=== PATIENT | male | born 1935 | race Caucasian/White ===

== ENCOUNTER 2018-04-28 23:48 | Emergency (ER) | payer OTHER ==
[2018-04-29 00:57] LABS: Hematocrit 34.4 % (39.6-49.0); MCH 26.5 pg (27.0-35.0); MCV 83.3 fL (80-100); MPV 6.5 fL (7.6-11.3); RBC Red Blood Cell Count 4.12 M/uL (4.33-5.43)
--- NOTE | 2018-04-29 01:45 | EDPHYS ---
Physician Documentation [facility] Name: Mushtaq Chavez Age: 82 yrs Sex: Male : 1935 Arrival Date: 04/28/2018 Time: 23:49 Bed 25 Private MD: Du Fournier V ED Physician Jose Luis Lawson HPI: 04/29 01:42 This 82 yrs old Male presents to ER via Ambulatory with complaints of tw4 Allergic Reaction. 01:42 The patient presents with diffuse swelling. Onset: The symptoms/episode began/occurred tw4 today. Associated signs and symptoms: The patient has no apparent associated signs or symptoms. Possible causes: The patient has no known obvious cause for the symptoms. At home the patient or guardian has treated the symptoms with nothing. Severity of symptoms: At their worst the symptoms were mild in the emergency department the symptoms are unchanged. The patient has not experienced similar symptoms in the past. Historical: - Allergies: 00:06 No Known Allergies; bb - Home Meds: 00:06 Glimepiride Oral [Active]; Metformin Oral [Active]; clopidogrel oral oral [Active]; bb carvedilol oral oral [Active]; amlodipine oral [Active]; atorvastatin oral oral [Active]; mirtazapine Oral [Active]; paroxetine oral oral [Active]; Actonel Oral [Active]; acetaminophen-codeine Oral [Active]; Anoro Ellipta inhalation inhalation [Active]; aspirin 81 mg Oral chew 1 tab once daily [Active]; Multiple Vitamins oral oral [Active]; calcium [Active]; - PMHx: 00:06 TIA; Diabetes - NIDDM; Hypertension; bb - PSHx: 00:06 Hernia repair; cataract surgery x 2; cardiac catheterization; bb - Immunization history:: Adult Immunizations up to date. - Social history:: Smoking status: Patient uses tobacco products, smokes one pack cigarettes per day. - Ebola Screening: : No symptoms or risks identified at this time. ROS: 01:42 Constitutional: Negative for fever, chills, and weight loss. tw4 01:42 MS/extremity: Positive for swelling. Exam: 01:42 Constitutional: This is a well developed, well nourished patient who is awake, alert, tw4 and in no acute distress. Head/Face: Normocephalic, atraumatic. Chest/axilla: Normal chest wall appearance and motion. Nontender with no deformity. No lesions are appreciated. Cardiovascular: Regular rate and rhythm with a normal S1 and S2. No gallops, murmurs, or rubs. Normal PMI, no JVD. No pulse deficits. Respiratory: Lungs have equal breath sounds bilaterally, clear to auscultation and percussion. No rales, rhonchi or wheezes noted. No increased work of breathing, no retractions or nasal flaring. Abdomen/GI: Soft, non-tender, with normal bowel sounds. No distension or tympany. No guarding or rebound. No evidence of tenderness throughout. MS/ Extremity: Pulses equal, no cyanosis. Neurovascular intact. Full, normal range of motion. Neuro: Awake and alert, GCS 15, oriented to person, place, time, and situation. Cranial nerves II-XII grossly intact. Motor strength 5/5 in all extremities. Sensory grossly intact. Cerebellar exam normal. Normal gait. Vital Signs: 00:06 BP 168 / 83; Pulse 112; Resp 18 S; Temp 97.6(O); Pulse Ox 89% on R/A; Weight 65.32 kg bb (R); Height 5 ft. 11 in. (180.34 cm); Pain 0/10; 01:33 BP 158 / 76; Pulse 100; Resp 18; Pulse Ox 94% on 2 lpm NC; Pain 0/10; ao 00:06 Body Mass Index 20.08 (65.32 kg, 180.34 cm) bb MDM: 00:29 Patient medically screened. tw4 01:42 Data reviewed: vital signs, nurses notes. Test interpretation: by ED physician or tw4 midlevel provider:. Counseling: I had a detailed discussion with the patient and/or guardian regarding: lab results. 04/29 00:48 Order name: CBC w/o diff; Complete Time: 01:42 tw4 04/29 01:42 Interpretation: Normal except: HGB 10.9; WBC 12.4; RBC 4.12; HCT 34.4; MCV 83.3; MCH tw4 26.5; MCHC 31.8; PLT 488; RDW 17.1; MPV 6.5. 04/29 01:09 Order name: Urine Dipstick--Ancillary (enter results) rg2 Administered Medications: No medications were administered Disposition: 04/29/18 01:44 Discharged to Home. Impression: Hematuria, allergic reaction. - Condition is Stable. - Discharge Instructions: Hematuria, Adult, Allergies, [id number]. - Prescriptions for Macrodantin 100 mg Oral Capsule - take 1 capsule by ORAL route every 6 hours for 10 days; 40 capsule. - Medication Reconciliation Form, Thank You Letter, Antibiotic Education, Prescription Opioid Use form. - Follow up: Du Fournier MD; When: As needed; Reason: Recheck today's complaints, Re-evaluation by your physician. - Problem is new. - Symptoms have improved. Signatures: Dispatcher [employer] EDMabel Mckinney RN RN Jose Juan Mayer RN RN Jose Luis Juarez MD MD tw4 Corrections: (The following items were deleted from the chart) 02:00 01:44 04/29/2018 01:44 Discharged to Home. Impression: Hematuria; allergic reaction. ao Condition is Stable. Forms are Medication Reconciliation Form, Thank You Letter, Antibiotic Education, Prescription Opioid Use. Follow up: Du Fournier; When: As needed; Reason: Recheck today's complaints, Re-evaluation by your physician. Problem is new. Symptoms have improved. tw4
--- NOTE | 2018-04-29 01:45 | ER ---
Nurse's Notes [facility] Name: Mushtaq Chavez Age: 82 yrs Sex: Male : 1935 Arrival Date: 04/28/2018 Time: 23:49 Bed 25 Private MD: Du Fournier V Diagnosis: Hematuria;allergic reaction Presentation: 04/29 00:00 Presenting complaint: Patient states: he started taking Cipro yesterday for hematuria bb took one dose yesterday and two today and now his feet are swollen family states pt has hx of TIAs when he gets excited. Transition of care: patient was not received from another setting of care. Onset: The symptoms/episode began/occurred acutely. Anaphylaxis evaluation, no signs or symptoms of anaphylaxis were noted. Onset of symptoms was April 29, 2018. Risk Assessment: Do you want to hurt yourself or someone else? Patient reports no desire to harm self or others. Initial Sepsis Screen: Does the patient meet any 2 criteria? No. Patient's initial sepsis screen is negative. Does the patient have a suspected source of infection? No. Patient's initial sepsis screen is negative. Care prior to arrival: None. 00:00 Method Of Arrival: Ambulatory bb 00:00 Acuity: ZOYA 3 bb Historical: - Allergies: 00:06 No Known Allergies; bb - Home Meds: 00:06 Glimepiride Oral [Active]; Metformin Oral [Active]; clopidogrel oral oral [Active]; bb carvedilol oral oral [Active]; amlodipine oral [Active]; atorvastatin oral oral [Active]; mirtazapine Oral [Active]; paroxetine oral oral [Active]; Actonel Oral [Active]; acetaminophen-codeine Oral [Active]; Anoro Ellipta inhalation inhalation [Active]; aspirin 81 mg Oral chew 1 tab once daily [Active]; Multiple Vitamins oral oral [Active]; calcium [Active]; - PMHx: 00:06 TIA; Diabetes - NIDDM; Hypertension; bb - PSHx: 00:06 Hernia repair; cataract surgery x 2; cardiac catheterization; bb - Immunization history:: Adult Immunizations up to date. - Social history:: Smoking status: Patient uses tobacco products, smokes one pack cigarettes per day. - Ebola Screening: : No symptoms or risks identified at this time. Screenin:33 Abuse screen: Denies threats or abuse. Denies injuries from another. Nutritional ao screening: No deficits noted. Tuberculosis screening: No symptoms or risk factors identified. Fall Risk None identified. Assessment: 00:15 General: Appears in no apparent distress. comfortable, Behavior is calm, cooperative, ao appropriate for age. Pain: Denies pain. Neuro: Level of Consciousness is awake, alert, obeys commands, Oriented to person, place, time, situation, Appropriate for age Moves all extremities. Speech is normal, Facial symmetry appears normal. Cardiovascular: Capillary refill < 3 seconds Patient's skin is warm and dry. Respiratory: Airway is patent Respiratory effort is even, unlabored, Respiratory pattern is regular, symmetrical, Breath sounds are clear bilaterally. GI: Abdomen is non-distended. : Reports burning with urination, pain with urination, UTI that has been treated with clindamycin. EENT: No signs and/or symptoms were reported regarding the EENT system. Derm: Skin is dry, Skin is pink, warm \T\ dry. normal, Skin temperature is warm Reports pain that is 2 out of 10 on a pain scale. since on the feet's when walks. Musculoskeletal: No signs and/or symptoms reported regarding the musculoskeletal system. 01:33 Reassessment: Patient appears in no apparent distress at this time. Patient and/or ao family updated on plan of care and expected duration. Pain level reassessed. Patient is alert, oriented x 3, equal unlabored respirations, skin warm/dry/pink. Vital Signs: 00:06 BP 168 / 83; Pulse 112; Resp 18 S; Temp 97.6(O); Pulse Ox 89% on R/A; Weight 65.32 kg bb (R); Height 5 ft. 11 in. (180.34 cm); Pain 0/10; 01:33 BP 158 / 76; Pulse 100; Resp 18; Pulse Ox 94% on 2 lpm NC; Pain 0/10; ao 00:06 Body Mass Index 20.08 (65.32 kg, 180.34 cm) bb ED Course: 04/28 23:49 Patient arrived in ED. am2 23:49 Du Fournier MD is Private Physician. am2 23:50 Jose Juan Dawn RN is Primary Nurse. ao 04/29 00:02 Triage completed. bb 00:06 Arm band placed on Patient placed in an exam room, on a stretcher, on oxygen, on pulse bb oximetry. Family accompanied patient. 00:07 Oxygen administration via nasal cannula \T\ 2L/min Response to oxygen therapy: symptoms bb improved. 00:20 Inserted saline lock: 22 gauge in right forearm, using aseptic technique. Blood ao collected. 00:29 Jose Luis Lawson MD is Attending Physician. tw4 00:33 Patient has correct armband on for positive identification. Pulse ox on. NIBP on. ao 01:43 Du Fournier MD is Referral Physician. tw4 01:58 No provider procedures requiring assistance completed. IV discontinued, intact, ao bleeding controlled, No redness/swelling at site. Pressure dressing applied. Administered Medications: No medications were administered Outcome: 01:44 Discharge ordered by . tw4 02:00 Discharged to home ambulatory. ao 02:00 Condition: stable 02:00 Discharge instructions given to patient, Instructed on discharge instructions, follow up and referral plans. Demonstrated understanding of instructions, follow-up care, medications, Prescriptions given X 1. 02:00 Patient left the ED. ao Signatures: Mabel Mcneil, RN RN Jose Juan Mayer, RN RN Pamela Mcqueen am2 Jose Luis Lawson MD MD tw4
[2018-04-29 02:09] VITALS: TEMP 97.6
[2018-04-29 02:11] VITALS: BP 158/76; O2SAT 94
[2018-04-29 05:20] LABS: Urine Blood 3+ (NEG); Urine Glucose NEGATIVE (NEG); Urine Protein 3+ (NEG); Urine pH 6.5 (5.0-7.0)
== END 2018-04-29 02:00 | disposition home or self-care (01) ==
LOC: ER 23:48
DX: T78.40XA Allergy, unspecified, initial encounter (principal); X58.XXXA Exposure to other specified factors, initial encounter; R31.9 Hematuria, unspecified; E11.9 Type 2 diabetes mellitus without complications; Z79.84 Long term (current) use of oral hypoglycemic drugs; I10 Essential (primary) hypertension
CPT/HCPCS: 36415; 81003; 85027; 99284

== ENCOUNTER 2018-05-04 13:16 | Inpatient (IN) | payer OTHER ==
[2018-05-04] MEDS: CEFTRIAXONE/SWI 1gm 1 GM/10 ML SYR IV SCH ×2 (14:30→21:45)
[2018-05-04 14:50] LABS: Absolute Lymphocytes (CBC) 1.5 K/uL (0.7-4.9); Absolute Monocytes 0.8 K/uL (0.1-1.3); Absolute Neutrophil 9.2 K/uL (1.8-8.0); Basophils % 0.9 % (0-1.3); Lymphocytes % 12.7 % (15.3-44.8); MCH 27.3 pg (27.0-35.0); MCV 83.7 fL (80-100); MPV 6.6 fL (7.6-11.3); Monocytes % 6.9 % (3.3-12.3); RBC Red Blood Cell Count 3.94 M/uL (4.33-5.43)
[2018-05-04 14:59] LABS: Protime INR 0.99
[2018-05-04 15:10] LABS: Potassium 4.2 mmol/L (3.5-5.1)
--- NOTE | 2018-05-04 16:20 | EKG ---
Test Date: 2018-05-04 Test Time: 14:22:21 Cooling Tower Technician: ADIA MEASUREMENT RESULTS: Intervals: Rate: 108 [place]: 208 QRSD: 80 QT: 326 QTc: 436 [place]: P: 78 [place]: 208 QRS: 46 T: 76 INTERPRETIVE STATEMENTS: Sinus tachycardia Anterior infarct, age undetermined Abnormal ECG Compared to ECG 12/31/2014 23:08:13 Sinus rhythm no longer present First degree AV block no longer present Myocardial infarct finding still present Electronically Signed On 05-04-18 16:19:53 CDT by Eddie Nassar
[2018-05-04 16:26] LABS: Urine Appearance CLOUDY; Urine Bilirubin NEGATIVE (NEG); Urine Blood 3+ (NEG); Urine Color RED; Urine Glucose 1+ (NEG); Urine Protein 3+ (NEG); Urine Specific Gravity 1.015 (1.005-1.030); Urine Urobilinogen 0.2 mg/dL (0.2-1.0)
[2018-05-04 16:30] LABS: Urine Microscopic Reflex ORDER UMIC
[2018-05-04 16:34] LABS: Urine Bacteria <20 /HPF (NONE SEEN); Urine Culture Reflex Order REFLEXED; Urine RBC LOADED /HPF (NONE SEEN)
--- NOTE | 2018-05-04 17:20 | RAD REPORT ---
EXAM DESCRIPTION: CT - Abdomen Pelvis W Contrast - 05/04/2018 4:56 pm CLINICAL HISTORY: Hematuria COMPARISON: None. TECHNIQUE: Computed axial tomography of the abdomen and pelvis was obtained. 100 cc Isovue-300 is ad ministered intravenously. Oral contrast was given. All CT scans are performed using dose optimization technique as appropriate and may include automated exposure control or mA/KV adjustment according to patient size. FINDINGS: The liver, spleen, hand pain appear unremarkable. Bilateral renal cysts are present. The largest with in the right kidney measuring 5.4 centimeters. 30 millimeter left adrenal mass is present. 12 millimeter right adrenal mass is seen. A 6 centimeter lobulated mass is present within the posterior bladder. Air bubbles are present. The p rostate gland is moderately enlarged. There is no evidence of diverticulitis. The bones of the pelvis and spine have a mottled appearance. 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 Fournier 5:10 p.m. May 04, 2018
[2018-05-04] MEDS ORDERED: RISEDRONATE SODIUM PO SCH (18:30)
--- NOTE | 2018-05-04 18:35 | P.HP ---
Certification for Inpatient Patient admitted to: Observation With expected LOS: <2 Midnights Practitioner: I am a practitioner with admitting privileges, knowledge of patient current condition, hospital course, and medical plan of care. Services: Services provided to patient in accordance with Admission requirements found in Title 42 Section 412.3 of the Code of Federal Regulations Patient History Date of Service: 05/04/18 Reason for admission: HEMATURIA, UTI History of Present Illness: MR. HENRIQUEZ HAS HEMATURIA FOR TWO WEEKS. HAS BEEN REFERRED TO DR. MARIE WHO SAW HIM TODAY AND GOT ADMITTED FOR PROCEDURE IN AM PROCEDURE TODAY COULD NOT BE FINISHED WITH TOO MANY CLOTS. HE HAD UTI IN BETWEEN AND GOT CIPRO FROM DR BHAGAT AND THEN HAD REACTION WITH EEMA OF FEET AND TINGLING. HE WENT TO ER , GOT MACRODANTIN AND NOW IS HERE. Allergies No Known Allergies Allergy (Unverified 01/25/15 06:02) Home Medications: Amlodipine Besylate/Benazepril [Amlodipine-Benazepril 10-20 mg] 1 cap PO DAILY 05/04/18 Aspirin 1 tab PO DAILY 05/04/18 Atorvastatin Calcium [Lipitor*] 1 cap PO DAILY 05/04/18 Calcium Carbonate [Calcium] 1 tab PO DAILY 05/04/18 Carvedilol [Coreg*] 1 cap PO BID 05/04/18 Clopidogrel Bisulfate [Plavix*] 1 cap PO DAILY 05/04/18 Glimepiride 5 mg PO BID 05/04/18 Metformin HCl [Glucophage] 500 mg PO BID 05/04/18 Mirtazapine [Remeron*] 1 cap PO DAILY 05/04/18 Multivitamin [Multivitamins] 1 tab PO DAILY 05/04/18 Nitrofurantoin Monohyd/M-Cryst [Macrobid 100 mg Capsule] 1 tab PO Q6H 05/04/18 PARoxetine HCl [Paxil*] 1 tab PO DAILY 05/04/18 Risedronate Sodium [Actonel] 1 tab PO SEECOM 05/04/18 Umeclidinium Brm/Vilanterol Tr [Anoro Ellipta 62.5-25 Mcg INH] 1 puff PO DAILY 05/04/18 - Past Medical/Surgical History Has patient received pneumonia vaccine in the past: Yes Diabetic: Yes -: niddm -: cva x 2 -: high cholesterol -: hypertension -: copd -: malignant hyperthermia -: paget's disease -: abdominal hernia -: bilateral cataract surgery - Family History Father History Unknown: Yes -: Stroke Brother -: Heart disease Notes: mi miother -: Heart disease Notes: mi - Social History Smoking Status: Current every day smoker Alcohol use: No CD- Drugs: No Caffeine use: Yes Place of Residence: Home Review of Systems 10-point ROS is otherwise unremarkable General: Weakness Respiratory: Shortness of Breath (CHR COPD) Physical Examination - Vital Signs Temperature: 98.3 F Blood Pressure: 161/77 Pulse: 97 Respirations: 18 Pulse Ox (%): 90 - Physical Exam General: Alert, Cachectic, Acute distress, Mild distress HEENT: Atraumatic, PERRLA, Mucous membr. moist/pink, EOMI, Sclerae nonicteric Neck: Supple, 2+ carotid pulse no bruit, No LAD, Without JVD or thyroid abnormality Respiratory: Diminished Cardiovascular: Regular rate/rhythm, Normal S1 S2 Gastrointestinal: Normal bowel sounds, No tenderness Musculoskeletal: No tenderness Integumentary: No rashes Neurological: Normal gait, Normal speech, Normal strength at 5/5 x4 extr, Normal tone, Normal affect Lymphatics: No axilla or inguinal lymphadenopathy - Studies Laboratory Data (last 24 hrs) 05/04/18 14:37: Sodium 135 L, Potassium 4.2, BUN 21 H, Creatinine 1.10, Glucose 232 H 05/04/18 14:37: PT 11.7, INR 0.99, APTT 32.4 05/04/18 14:37: WBC 12.1 H, Hgb 10.8 L, Hct 33.0 L, Plt Count 579 H Assessment and Plan - Problems (Diagnosis) (1) Hematuria Current Visit: Yes Status: Acute Plan: SMOKER CT SCAN SHOWS MASS DR MARIE TO DO SCOPE IN AM. BX IF NEED PLAVIX ON HOLD (2) COPD (chronic obstructive pulmonary disease) Current Visit: Yes Status: Chronic Plan: CHR NO CHANGES Qualifiers: COPD type: unspecified COPD Qualified Code(s): J44.9 - Chronic obstructive pulmonary disease, unspecified (3) HTN (hypertension) Current Visit: Yes Status: Chronic Qualifiers: Hypertension type: essential hypertension Qualified Code(s): I10 - Essential (primary) hypertension (4) Diabetes Current Visit: Yes Status: Chronic Plan: FU ON MEDS A1C STABLE AT OFFICE (5) History of CVA (cerebrovascular accident) Current Visit: Yes Status: Resolved Plan: HOLDING PLAVIX AND ASPIRIN OF ACUTE CONDITION RAISES RISK OF CVA. PATIENT AWARE - Advance Directives Does patient have a Living Will: Yes Does patient have a Durable POA for Healthcare: Yes
[2018-05-04] MEDS ORDERED: GLIMEPIRIDE 5 MG PO SCH (21:00)
[2018-05-04] MEDS ORDERED: METFORMIN HCL 500 MG TAB PO SCH (21:00)
[2018-05-04] MEDS ORDERED: CARVEDILOL 6.25 MG TAB PO SCH (21:00)
[2018-05-04] MEDS ORDERED: ATORVASTATIN 10 MG TAB PO SCH (21:00)
[2018-05-04] MEDS ORDERED: MIRTAZAPINE 15 MG TAB PO SCH (21:00)
[2018-05-04] MEDS: CARVEDILOL 6.25 MG TAB PO SCH (21:44)
[2018-05-04] MEDS: ATORVASTATIN 10 MG TAB PO SCH (21:45)
[2018-05-04] MEDS: D5.45NS W/KCL 20MEQ 1,000 ML IV SCH (23:58)
[2018-05-05] MEDS ORDERED: GLIMEPIRIDE 2 MG TABLET PO SCH (08:00)
[2018-05-05] MEDS: CARVEDILOL 6.25 MG TAB PO SCH ×2 (08:15→20:30)
[2018-05-05] MEDS: AMLODIPINE 10 MG TAB PO SCH (08:15)
[2018-05-05] MEDS: CEFTRIAXONE/SWI 1gm 1 GM/10 ML SYR IV SCH ×2 (08:15→20:31)
[2018-05-05] MEDS: HOME MED 1 EA UNK IH SCH (08:15)
[2018-05-05] MEDS: BENAZEPRIL 20 MG TAB PO SCH (08:15)
[2018-05-05] MEDS: PARoxetine HCl 10 MG TAB PO SCH ×2 (08:16→23:39)
[2018-05-05] MEDS: CALCIUM CARBONATE 500 MG TAB PO SCH (08:16)
[2018-05-05] MEDS: MIRTAZAPINE 15 MG TAB PO SCH ×2 (08:16→23:39)
[2018-05-05] MEDS: HOME MED 1 EA UNK (Umeclidinium Brm/Vilanterol Tr [Anoro Ellipta 62.5-25 Mcg Inh] 1 PUFF) PO SCH (08:16)
[2018-05-05] MEDS ORDERED: MULTIVITAMIN TAB PO SCH (09:00)
[2018-05-05] MEDS ORDERED: BENAZEPRIL 20 MG TAB PO SCH (09:00)
[2018-05-05] MEDS ORDERED: AMLODIPINE BESYLATE PO SCH (09:00)
[2018-05-05] MEDS ORDERED: BENAZEPRIL PO SCH (09:00)
[2018-05-05] MEDS ORDERED: PARoxetine HCl 10 MG TAB PO SCH (09:00)
[2018-05-05] MEDS ORDERED: [UNRECOGNIZED DRUG - OTHER] PO SCH (09:00)
--- NOTE | 2018-05-05 12:57 | P.PN ---
Subjective Date of Service: 05/05/18 Chief Complaint: HEMATURIA, UTI Subjective: No new changes (HAS BM AT THE SAME TIME HE URINATES.) Review of Systems 10-point ROS is otherwise unremarkable Physical Examination - Vital Signs Temperature: 97.5 F Blood Pressure: 158/73 Pulse: 97 Respirations: 18 Pulse Ox (%): 89 - Physical Exam General: Alert, Cachectic, Mild distress HEENT: Atraumatic, PERRLA, EOMI Neck: Supple, JVD not distended Respiratory: Clear to auscultation bilaterally, Normal air movement Cardiovascular: Regular rate/rhythm, Normal S1 S2 Gastrointestinal: Normal bowel sounds, No tenderness Musculoskeletal: No tenderness Integumentary: No rashes Neurological: Normal speech, Normal tone, Normal affect Lymphatics: No axilla or inguinal lymphadenopathy - Studies Laboratory Data (last 24 hrs) 05/04/18 14:37: Sodium 135 L, Potassium 4.2, BUN 21 H, Creatinine 1.10, Glucose 232 H 05/04/18 14:37: PT 11.7, INR 0.99, APTT 32.4 05/04/18 14:37: WBC 12.1 H, Hgb 10.8 L, Hct 33.0 L, Plt Count 579 H Medications List Reviewed: Yes Assessment And Plan - Current Problems (Diagnosis) (1) Hematuria Current Visit: Yes Status: Acute Plan: SMOKER CT SCAN SHOWS MASS FRANK TO DO SCOPE IN AM. BX IF NEED PLAVIX ON HOLD CYSTOSCOPY AND BX TODAY. (2) COPD (chronic obstructive pulmonary disease) Current Visit: Yes Status: Chronic Plan: CHR NO CHANGES Qualifiers: COPD type: unspecified COPD Qualified Code(s): J44.9 - Chronic obstructive pulmonary disease, unspecified (3) HTN (hypertension) Current Visit: Yes Status: Chronic Qualifiers: Hypertension type: essential hypertension Qualified Code(s): I10 - Essential (primary) hypertension (4) Diabetes Current Visit: Yes Status: Chronic Plan: FU ON MEDS A1C STABLE AT OFFICE (5) History of CVA (cerebrovascular accident) Current Visit: Yes Status: Resolved Plan: HOLDING PLAVIX AND ASPIRIN OF ACUTE CONDITION RAISES RISK OF CVA. PATIENT AWARE
[2018-05-05] MEDS: D5.45NS W/KCL 20MEQ 1,000 ML IV SCH ×2 (12:58→23:26)
[2018-05-05] MEDS ORDERED: PROPOFOL 200 MG/20 ML VIAL IV ONE (13:43)
[2018-05-05] MEDS ORDERED: LIDOCAINE 2% MPF 5 ML VIAL ONE (13:43)
[2018-05-05] MEDS ORDERED: FENTANYL CITR 100 MCG/2 ML ONE (13:43)
[2018-05-05] MEDS ORDERED: NA CHLORIDE 0.9% 1,000 ML IV PRN (13:50)
[2018-05-05] MEDS ORDERED: MAGNESIUM HYDROXIDE 8% 30 ML PO PRN (14:07)
[2018-05-05] MEDS ORDERED: NA CHLORIDE 0.9% 1,000 ML ONE (14:08)
[2018-05-05] MEDS ORDERED: GENTAMICIN IV ONE (14:20)
[2018-05-05] MEDS ORDERED: GENTAMICIN SULF 80 MG/2ML INJ ONE (14:20)
[2018-05-05] MEDS ORDERED: CODEINE 30MG/APAP 300MG TAB PO PRN (16:34)
[2018-05-05] MEDS: CODEINE 30MG/APAP 300MG TAB PO PRN ×2 (16:43→21:51)
[2018-05-05] MEDS: PHENAZOPYRIDINE 100MG TAB PO SCH ×2 (16:56→23:27)
[2018-05-05] MEDS: GLIMEPIRIDE 2 MG TABLET PO SCH (17:15)
[2018-05-05] MEDS: ATORVASTATIN 10 MG TAB PO SCH (20:30)
[2018-05-05] MEDS ORDERED: TAMSULOSIN 0.4 MG SR CAP PO SCH (21:00)
[2018-05-06] MEDS: D5.45NS W/KCL 20MEQ 1,000 ML IV SCH ×2 (02:04→15:12)
[2018-05-06] MEDS ORDERED: NACL 0.9% IRR SOLN 2,000 ML IRR SCH (03:00)
[2018-05-06] MEDS: CODEINE 30MG/APAP 300MG TAB PO PRN (03:25)
[2018-05-06] MEDS: PHENAZOPYRIDINE 100MG TAB PO SCH ×2 (05:40→12:25)
[2018-05-06 05:52] VITALS: BMI 20.1
[2018-05-06] MEDS: PARoxetine HCl 10 MG TAB PO SCH (06:59)
[2018-05-06] MEDS: MIRTAZAPINE 15 MG TAB PO SCH (07:00)
[2018-05-06] MEDS: CARVEDILOL 6.25 MG TAB PO SCH (08:27)
[2018-05-06] MEDS: GLIMEPIRIDE 2 MG TABLET PO SCH ×2 (08:27→16:05)
[2018-05-06] MEDS: CEFTRIAXONE/SWI 1gm 1 GM/10 ML SYR IV SCH (08:28)
[2018-05-06] MEDS: CALCIUM CARBONATE 500 MG TAB PO SCH (08:28)
[2018-05-06] MEDS: HOME MED 1 EA UNK IH SCH ×2 (08:30→09:00)
[2018-05-06] MEDS: HOME MED 1 EA UNK (Umeclidinium Brm/Vilanterol Tr [Anoro Ellipta 62.5-25 Mcg Inh] 1 PUFF) PO SCH ×2 (08:31→09:00)
[2018-05-06 09:21] VITALS: O2SAT 94
[2018-05-06] MEDS: AMLODIPINE 10 MG TAB PO SCH (10:11)
[2018-05-06] MEDS: BENAZEPRIL 20 MG TAB PO SCH (10:11)
[2018-05-06] MEDS ORDERED: MITOMYCIN IRR ONE (12:00)
[2018-05-06] MEDS ORDERED: mitoMYcin 40 MG in WATER FOR INJ,STERILE 50 ML IV SCH (12:00)
[2018-05-06 17:16] VITALS: BP 124/82; TEMP 98.8
--- NOTE | 2018-05-06 20:30 | PN ---
Subjective: The patient is doing well. Urine is clear. Objective: A 40 mg mitomycin C in 40 cc sterile water was placed via the catheter into the bladder. The bladder was obviously drained prior and CBI was off. After this the catheter was removed leaving the mitomycin in the bladder. The patient will spend 15 minutes on each side to lucy the entire bl adder with mitomycin in the perioperative period, status post bladder tumor resection. The patient w ill then sit on the toilet and void. Try to avoid the mitomycin touching his skin that will cause a rash. He can then go home as permitted by his primary care. Follow up with me in 1 week for patholo gy results. CHRISTIANA/SCOUT Voice ID: [id number] Report ID: [id number]
[2018-05-06] MEDS ORDERED: MIRTAZAPINE 15 MG TAB PO SCH (21:00)
[2018-05-06] MEDS ORDERED: PARoxetine HCl 10 MG TAB PO SCH (21:00)
--- NOTE | 2018-05-06 22:37 | P.DS ---
Admission Date: 05/04/18 Discharge Date: 05/06/18 Disposition: ROUTINE DISCHARGE Reason for Admission: HEMATURIA, UTI - Problems (1) Hematuria Onset Date: 05/05/18 Status: Acute (2) COPD (chronic obstructive pulmonary disease) Onset Date: 05/05/18 Status: Chronic Qualifiers: COPD type: unspecified COPD Qualified Code(s): J44.9 - Chronic obstructive pulmonary disease, unspecified (3) HTN (hypertension) Onset Date: 05/05/18 Status: Chronic Qualifiers: Hypertension type: essential hypertension Qualified Code(s): I10 - Essential (primary) hypertension (4) Diabetes Onset Date: 05/05/18 Status: Chronic Brief History of Present Illness: MR. HENRIQUEZ HAS HEMATURIA FOR TWO WEEKS. HAS BEEN REFERRED TO DR. SHELBY WHO SAW HIM TODAY AND GOT ADMITTED FOR PROCEDURE IN AM PROCEDURE TODAY COULD NOT BE FINISHED WITH TOO MANY CLOTS. HE HAD UTI IN BETWEEN AND GOT CIPRO FROM DR BHAGAT AND THEN HAD REACTION WITH EEMA OF FEET AND TINGLING. HE WENT TO ER , GOT MACRODANTIN AND NOW IS HERE. MR. HENRIQUEZ HAS HAD CYSTOSCOPY AND TUMOR REMOVED. HE IS STABLE [facility]. DR. SHELBY WILL FU. Vital Signs/Physical Exam: Temp Pulse Resp BP Pulse Ox 98.8 F 104 H 20 124/82 91 05/06/18 16:00 05/06/18 16:00 05/06/18 16:00 05/06/18 16:00 05/06/18 16:00 Laboratory Data at Discharge: WBC 12.1 K/uL (4.3-10.9) H 05/04/18 14:37 Hgb 10.8 g/dL (13.6-17.9) L 05/04/18 14:37 Hct 33.0 % (39.6-49.0) L 05/04/18 14:37 Plt Count 579 K/uL (152-406) H 05/04/18 14:37 PT 11.7 SECONDS (9.5-12.5) 05/04/18 14:37 INR 0.99 05/04/18 14:37 APTT 32.4 SECONDS (24.3-36.9) 05/04/18 14:37 Sodium 135 mmol/L (136-145) L 05/04/18 14:37 Potassium 4.2 mmol/L (3.5-5.1) 05/04/18 14:37 BUN 21 mg/dL (7-18) H 05/04/18 14:37 Creatinine 1.10 mg/dL (0.55-1.3) 05/04/18 14:37 Glucose 232 mg/dL (74-106) H 05/04/18 14:37 Home Medications: Amlodipine Besylate/Benazepril [Amlodipine-Benazepril 10-20 mg] 1 cap PO DAILY 05/04/18 Aspirin 1 tab PO DAILY 05/04/18 Atorvastatin Calcium [Lipitor*] 1 cap PO DAILY 05/04/18 Calcium Carbonate [Calcium] 1 tab PO DAILY 05/04/18 Carvedilol [Coreg*] 1 cap PO BID 05/04/18 Clopidogrel Bisulfate [Plavix*] 1 cap PO DAILY 05/04/18 Glimepiride 5 mg PO BID 05/04/18 Metformin HCl [Glucophage*] 500 mg PO BID 05/04/18 Mirtazapine [Remeron*] 1 cap PO BEDTIME 05/04/18 Multivitamin [Multivitamins] 1 tab PO DAILY 05/04/18 Nitrofurantoin Monohyd/M-Cryst [Macrobid 100 mg Capsule] 1 tab PO Q6H 05/04/18 PARoxetine HCl [Paxil*] 1 tab PO BEDTIME 05/04/18 Risedronate Sodium [Actonel] 1 tab PO SEECOM 05/04/18 Umeclidinium Brm/Vilanterol Tr [Anoro Ellipta 62.5-25 Mcg INH] 1 puff PO DAILY 05/04/18 Followup: Chandler Shelby MD [ACTIVE - CAN ADMIT] - Du Fournier MD [Primary Care Provider] -
== END 2018-05-06 19:00 | disposition home or self-care (01) | DRG 670 ==
LOC: 2ND 13:43 → 3RD-ICU 05-05 15:35 → 2ND 05-06 11:30
PROVIDERS: ADMIT Internal Medicine; ATTEND Internal Medicine
PROC: 0TBB8ZZ Excision of Bladder, Via Natural or Artificial Opening Endoscopic (ICD-10-PCS; principal; 2018-05-05 13:30)
PROC: 3E0K705 Introduction of Other Antineoplastic into Genitourinary Tract, Via Natural or Artificial Opening (ICD-10-PCS; 2018-05-06)
DX: C67.4 Malignant neoplasm of posterior wall of bladder (principal); R31.0 Gross hematuria; J44.9 Chronic obstructive pulmonary disease, unspecified; F17.200 Nicotine dependence, unspecified, uncomplicated; I10 Essential (primary) hypertension; Z86.73 Personal history of transient ischemic attack (TIA), and cerebral infarction without residual deficits; H40.9 Unspecified glaucoma; E11.9 Type 2 diabetes mellitus without complications; Z79.84 Long term (current) use of oral hypoglycemic drugs; Z79.02 Long term (current) use of antithrombotics/antiplatelets; Z79.82 Long term (current) use of aspirin; E78.00 Pure hypercholesterolemia, unspecified
CPT/HCPCS: 36415; 74177; 80048; 81003; 81015; 82962; 85025; 85610; 85730; 87086; 87088; 88305; 88307; 93005; J0696; J1580; J3010; J7030; J9280

== ENCOUNTER 2018-07-14 10:14 | Inpatient (IN) | payer OTHER ==
[2018-07-14] MEDS ORDERED: ALBUTEROL 2.5 MG/3 ML NEB SOL IH PRN (10:49)
[2018-07-14] MEDS ORDERED: POLYETHYL GLY 3350 17 GM/DOSE PO PRN (11:00)
[2018-07-14] MEDS ORDERED: NACHLORIDE 0.45% 1,000 ML IV SCH ×2 (11:00→17:00)
[2018-07-14] MEDS ORDERED: LOPERAMIDE HCL 2 MG CAPSULE PO PRN (11:00)
[2018-07-14] MEDS ORDERED: ONDANSETRON 4 MG/2 ML VIAL IV PRN (11:00)
[2018-07-14] MEDS ORDERED: DIPHENHYDRAMINE 25 MG TAB/CAP PO PRN (11:00)
[2018-07-14] MEDS ORDERED: ACETAMINOPHEN 325 MG TABLET PO PRN (11:00)
[2018-07-14] MEDS ORDERED: ONDANSETRON 4 MG (ODT) TAB PO PRN (11:00)
[2018-07-14 11:54] LABS: Protime INR 1.06
[2018-07-14 12:09] LABS: Absolute Lymphocytes (CBC) 1.3 K/uL (0.7-4.9); Absolute Monocytes 0.7 K/uL (0.1-1.3); Absolute Neutrophil 9.8 K/uL (1.8-8.0); Basophils % 1.1 % (0-1.3); Eosinophils % 2.5 % (0-4.4); Hematocrit 34.5 % (39.6-49.0); Lymphocytes % 10.8 % (15.3-44.8); MCH 25.1 pg (27.0-35.0); MPV 6.6 fL (7.6-11.3); Monocytes % 5.8 % (3.3-12.3); RBC Red Blood Cell Count 4.42 M/uL (4.33-5.43)
[2018-07-14 12:25] LABS: Albumin 2.8 g/dL (3.4-5.0); Bilirubin Direct 0.1 mg/dL (0-0.2); Bilirubin Total 0.3 mg/dL (0.2-1.0); Magnesium 1.7 mg/dL (1.8-2.4); Phosphorus 3.1 mg/dL (2.5-4.9); Potassium 4.5 mmol/L (3.5-5.1); Thyroid Stimulating Hormone 1.68 uIU/mL (0.360-3.740)
[2018-07-14] MEDS: IPRATROPIUM BROM 0.5MG/2.5ML IH SCH ×2 (13:38→19:58)
[2018-07-14] MEDS: LEVALBUTEROL 1.25 MG/3 ML NEB IH SCH ×2 (13:38→19:58)
--- NOTE | 2018-07-14 13:41 | RAD REPORT ---
EXAM DESCRIPTION: CT - Chest Angio - 07/14/2018 1:01 pm CLINICAL HISTORY: Dyspnea, COPD, shortness of breath COMPARISON: Portable chest December 2014 TECHNIQUE: Dynamically enhanced 3 mm thick images of the chest were obtained during administration o f approximately 150mL Isovue 370 IV contrast. Coronal and oblique MIP reconstruction images were gene rated and reviewed. Exam utilizes a protocol to evaluate the pulmonary arterial tree. All CT scans are performed using dose optimization technique as appropriate and may include automated exposure control or mA/KV adjustment according to patient size. FINDINGS: No pulmonary emboli are identified. The aorta as imaged shows no acute or suspicious finding. No pericardial thickening or effusion. Patient has severe COPD changes in each upper lobe. In the posterosuperior right upper lobe there is an 8 centimeter masslike consolidation. There is central cavitation. A less extensive airspace consol idation pattern is seen in the posterior inferior left upper lobe. Airspace consolidation changes are seen in the right middle lobe and the posterior inferior aspect of each lower lobe. Minimal bilateral pleural effusions are present. There is no pneumothorax. Primary pleural based mass is not identifiable. No endobronchial lesions identifiable. There is borderline bronchiectasis in th e lower lobes. Numerous mediastinal and hilar lymph nodes are present. The subcarinal lymphadenopathy measures 4.6 x 2.6 cm. No chest wall masses or abnormal axillary lymphadenopathy. IMPRESSION: No pulmonary emboli identified. Extensive irregular airspace consolidation throughout all lobes with the largest area in the posteros uperior right upper lobe where there is additional central cavitation. Patient has an extensive mediastinal and hilar lymphadenopathy pattern along with small bilateral ple ural effusions. Lung parenchymal findings can indicate a cavitary or necrotizing diffuse pneumonia pattern. Pulmonary TB would be a consideration as well. Diffuse nature of the lung parenchymal findings not typical for malignancy. Patient has extensive underlying COPD.
[2018-07-14 15:41] LABS: Urine Appearance CLEAR; Urine Bilirubin NEGATIVE (NEG); Urine Blood NEGATIVE (NEG); Urine Color YELLOW; Urine Glucose NEGATIVE (NEG); Urine Protein 1+ (NEG); Urine Specific Gravity >=1.030 (1.005-1.030); Urine Urobilinogen 0.2 mg/dL (0.2-1.0); Urine pH 5.5 (5.0-7.0)
[2018-07-14] MEDS: Meropenem 1,000 MG in NA CHLORIDE 0.9% 100 ML IV SCH (15:42)
[2018-07-14 15:45] LABS: Urine Microscopic Reflex ORDER UMIC
[2018-07-14 15:58] LABS: Urine Bacteria <20 /HPF (NONE SEEN); Urine Culture Reflex Order NOT NEEDED; Urine Mucus 1+ /HPF (NONE SEEN); Urine RBC <5 /HPF (NONE SEEN)
[2018-07-14] MEDS ORDERED: MAGNESIUM SULFATE 1 gm IVPB 1 GM/100 ML BAG IV ONE (17:00)
[2018-07-14] MEDS ORDERED: Meropenem 1000 MG/VIAL IV SCH ×2 (17:00)
[2018-07-14] MEDS ORDERED: METHYLPREDNISOLONE 40 MG INJ IV SCH (18:00)
[2018-07-14] MEDS ORDERED: D50W 25 GM/50 ML SYRINGE IV PRN (18:08)
[2018-07-14] MEDS ORDERED: GLUCAGON 1 MG/VIAL IM PRN (18:08)
[2018-07-14] MEDS: INSULIN -REGULAR HUMAN 50 UNIT/0.5 ML ML SQ SCH ×2 (18:39→21:00)
[2018-07-14] MEDS ORDERED: VANCOMYCIN 1.5 GM in NA CHLORIDE 0.9% 250 ML IVPB ONE (21:00)
[2018-07-14] MEDS ORDERED: VANCOMYCIN 1 GM/VIAL ONE (21:31)
[2018-07-14] MEDS ORDERED: VANCOMYCIN 500 MG/VIAL ONE (21:32)
[2018-07-14] MEDS ORDERED: NA CHLORIDE 0.9% 250 ML ONE (21:34)
[2018-07-14] MEDS: PARoxetine HCl 10 MG TAB PO SCH (21:39)
[2018-07-14] MEDS: MIRTAZAPINE 15 MG TAB PO SCH (21:39)
[2018-07-14] MEDS: CARVEDILOL 6.25 MG TAB PO SCH (21:39)
[2018-07-15] MEDS: Meropenem 1,000 MG in NA CHLORIDE 0.9% 100 ML IV SCH ×3 (01:05→16:53)
[2018-07-15] MEDS: LEVALBUTEROL 1.25 MG/3 ML NEB IH SCH ×4 (01:25→20:38)
[2018-07-15] MEDS: IPRATROPIUM BROM 0.5MG/2.5ML IH SCH ×4 (01:25→20:38)
[2018-07-15] MEDS ORDERED: FUROSEMIDE 20 MG/ 2ML VIAL IV ONE (02:31)
[2018-07-15 04:38] LABS: Absolute Lymphocytes (CBC) 1.1 K/uL (0.7-4.9); Absolute Monocytes 1.2 K/uL (0.1-1.3); Absolute Neutrophil 12.4 K/uL (1.8-8.0); Basophils % 0.9 % (0-1.3); Eosinophils % 4.2 % (0-4.4); Hematocrit 35.5 % (39.6-49.0); Lymphocytes % 7.2 % (15.3-44.8); MCH 24.8 pg (27.0-35.0); MCV 77.8 fL (80-100); MPV 6.7 fL (7.6-11.3); Monocytes % 7.9 % (3.3-12.3); RBC Red Blood Cell Count 4.56 M/uL (4.33-5.43)
[2018-07-15 04:52] LABS: Magnesium 1.8 mg/dL (1.8-2.4); Potassium 4.1 mmol/L (3.5-5.1)
[2018-07-15] MEDS ORDERED: MAGNESIUM SULFATE 1 gm IVPB 1 GM/100 ML BAG IV ONE (06:15)
[2018-07-15] MEDS: INSULIN -REGULAR HUMAN 50 UNIT/0.5 ML ML SQ SCH ×4 (07:30→21:00)
[2018-07-15] MEDS: ASPIRIN 81 MG CHEWABLE TABLET PO SCH (09:00)
[2018-07-15] MEDS: CODEINE 30MG/APAP 300MG TAB PO SCH (09:50)
[2018-07-15] MEDS: ATORVASTATIN 10 MG TAB PO SCH (09:50)
[2018-07-15] MEDS: CLOPIDOGREL 75 MG TABLET PO SCH (09:50)
[2018-07-15] MEDS: CARVEDILOL 6.25 MG TAB PO SCH ×2 (09:50→16:54)
--- NOTE | 2018-07-15 17:01 | P.CNS ---
Date of Consult: 07/15/18 Chief Complaint: Abnormal chest x-ray possible pneumonia History of Present Illness: Patient is 82 years of age was been experiencing progressive decline for the past 2 months since his operation on his bladder admitted with shortness of breath complaining of a cough denies any fever chills lost some weight he was found to have extensive bilateral infiltrates history of COPD quit smoking about 3 months ago history of COPD Allergies ciprofloxacin [From Cipro] Adverse Reaction (Verified 05/05/18 20:46) Itching/Hives/Rash Home Medications: Amlodipine Besylate/Benazepril [Amlodipine-Benazepril 10-20 mg] 1 cap PO DAILY 05/04/18 Aspirin 1 tab PO DAILY 05/04/18 Atorvastatin Calcium [Lipitor*] 1 cap PO DAILY 05/04/18 Carvedilol [Coreg*] 1 cap PO BID 05/04/18 Clopidogrel Bisulfate [Plavix*] 1 cap PO DAILY 05/04/18 Glimepiride 4 mg PO BID 05/04/18 Metformin HCl [Glucophage*] 1,000 mg PO BID 05/04/18 Mirtazapine [Remeron*] 1 cap PO BEDTIME 05/04/18 Multivitamin [Multivitamins] 1 tab PO DAILY 05/04/18 PARoxetine HCl [Paxil*] 1 tab PO BEDTIME 05/04/18 Risedronate Sodium [Actonel] 1 tab PO SEECOM 05/04/18 Umeclidinium Brm/Vilanterol Tr [Anoro Ellipta 62.5-25 Mcg INH] 1 puff PO DAILY 05/04/18 Calcium Carbonate/Vitamin D3 [Calcium 500 + Vit D Caplet] 1 tab PO DAILY Codeine/APAP [Tylenol #3*] 1 tab PO DAILY 07/14/18 - Past Medical/Surgical History Diabetic: Yes -: 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 -: high cholesterol -: hypertension -: copd -: malignant hyperthermia -: paget's disease -: A-fibb -: bilat abdominal hernia -: bilateral cataract surgery - Family History Father Medical History: Stroke Brother Medical History: Heart disease Notes: mi miother Medical History: Heart disease Notes: mi - Social History Smoking Status: Current every day smoker Alcohol use: No CD- Drugs: No Caffeine use: Yes Place of Residence: Home Review of Systems General: Weakness Respiratory: Cough, Shortness of Breath Physical Examination Temp Pulse Resp BP Pulse Ox 97.9 F 91 H 20 134/63 97 07/15/18 12:00 07/15/18 16:54 07/15/18 12:00 07/15/18 16:54 07/15/18 12:00 General: Alert, Oriented x3 HEENT: Atraumatic Neck: Supple Respiratory: Crackles/rales (Crackles bilaterally) Cardiovascular: No edema, Regular rate/rhythm Gastrointestinal: Normal bowel sounds, Soft and benign Laboratory Data (last 24 hrs) 07/15/18 04:00: Sodium 130 L, Potassium 4.1, BUN 21 H, Creatinine 0.90, Glucose 200 H, Magnesium 1.8 07/15/18 04:00: WBC 15.5 H D, Hgb 11.3 L, Hct 35.5 L, Plt Count 543 H - Problems (1) Pneumonia Current Visit: Yes Status: Acute Plan: Patient is 82 years of age admitted with progressive shortness of breath he has extensive bilateral infiltrates patient has a mildly elevated white count there is no fever or chills microcytic anemia currently is on vancomycin and meropenem sputum cultures ordered will consider bronchoscopy with the sputum cultures are nondiagnostic doubt tuberculosis patient symptoms are out of proportion to his x-ray findings 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
[2018-07-15] MEDS: MIRTAZAPINE 15 MG TAB PO SCH (21:00)
[2018-07-15] MEDS: PARoxetine HCl 10 MG TAB PO SCH (21:00)
[2018-07-15] MEDS: VANCOMYCIN 1.25 GM in NA CHLORIDE 0.9% 250 ML IVPB SCH (22:09)
[2018-07-16] MEDS: Meropenem 1,000 MG in NA CHLORIDE 0.9% 100 ML IV SCH ×3 (01:55→17:26)
--- NOTE | 2018-07-16 02:04 | PN ---
Subjective: The patient is short of breath, weak, tired, exhausted, slightly better than yesterday. Objective: The patient is an 82-year-old gentleman with past medical history of severe COPD, heavy s moking history, recent history of bladder cancer status post cystoscopy and getting bladder instillat ion chemotherapy. He is short of breath at rest. Pulse ox is staying about 92% on non-rebreather. He needed a BiPAP at night p.r.n., he was not able to tolerate it. He has been given vancomycin and meropenem since yesterday since we diagnosed him to have an extensive pneumonia with cavitary lesion. Laboratory Data: On laboratory examination, the patient has a white count of 15,000, which is after 1 dose of steroid he had yesterday, before that it was 12,000, hemoglobin 11, hematocrit 35, platelet s of 543,000. Sodium 131, potassium 4.1, BUN 21, creatinine 0.9, bicarb is 24. Lactic acid has come down to 1.6 from more than 2. Assessment And Plan: Possible bacterial infection of the lungs given pneumonia and cavita ry lesion, a small abscess. Continue vancomycin and meropenem. Sputum culture pending. Acid-fast b acilli pending. There is a low likelihood of tuberculosis or cancer here. He does have all the risk factors for cancer also. Continue antibiotics for now. We will evaluate him on a daily basis, disc uss with the patient's on daily basis. Dr. Zuñiga consulted. KATHLEEN/MODL Voice ID: [id number] Report ID: [id number]
[2018-07-16] MEDS: IPRATROPIUM BROM 0.5MG/2.5ML IH SCH ×4 (02:09→20:04)
[2018-07-16] MEDS: LEVALBUTEROL 1.25 MG/3 ML NEB IH SCH ×2 (02:09→07:45)
[2018-07-16 04:52] LABS: Absolute Lymphocytes (CBC) 0.9 K/uL (0.7-4.9); Absolute Monocytes 1.2 K/uL (0.1-1.3); Absolute Neutrophil 9.6 K/uL (1.8-8.0); Basophils % 0.7 % (0-1.3); Eosinophils % 6.2 % (0-4.4); Hematocrit 30.8 % (39.6-49.0); Lymphocytes % 7.2 % (15.3-44.8); MCH 25.2 pg (27.0-35.0); MCV 77.8 fL (80-100); MPV 6.5 fL (7.6-11.3); Monocytes % 9.6 % (3.3-12.3); RBC Red Blood Cell Count 3.96 M/uL (4.33-5.43)
[2018-07-16 05:04] LABS: BUN Blood Urea Nitrogen 21 mg/dL (7-18); Bicarbonate 25 mmol/L (21-32); Glucose Level 157 mg/dL (74-106); Magnesium 1.8 mg/dL (1.8-2.4); Potassium 4.2 mmol/L (3.5-5.1); Sodium Level 131 mmol/L (136-145)
[2018-07-16] MEDS ORDERED: MAGNESIUM SULFATE 1 gm IVPB 1 GM/100 ML BAG IV ONE (06:48)
[2018-07-16] MEDS: INSULIN -REGULAR HUMAN 50 UNIT/0.5 ML ML SQ SCH ×4 (07:30→21:55)
[2018-07-16] MEDS: CARVEDILOL 6.25 MG TAB PO SCH ×3 (08:00→17:22)
[2018-07-16] MEDS: ARFORMOTEROL TARTRATE 15 MCG/2 ML VIAL.NEB NEB SCH ×2 (08:49→20:04)
--- NOTE | 2018-07-16 08:53 | P.PN ---
Subjective Date of Service: 07/16/18 Chief Complaint: Abnormal chest x-ray possible pneumonia Subjective: Improving (Patient's condition is stable he is still does desat off O2 using BiPAP intermittently) Review of Systems General: Weakness Respiratory: Cough, Shortness of Breath Physical Examination - Vital Signs Temperature: 97.5 F Blood Pressure: 122/71 Pulse: 104 Respirations: 18 Pulse Ox (%): 92 - Physical Exam General: Alert, Oriented x3 Neck: Supple Respiratory: Crackles/rales Cardiovascular: No edema, Normal S1 S2 - Studies Laboratory Data (last 24 hrs) 07/16/18 04:25: Sodium 131 L, Potassium 4.2, BUN 21 H, Creatinine 0.80, Glucose 157 H, Magnesium 1.8 07/16/18 04:25: WBC 12.6 H D, Hgb 10.0 L, Hct 30.8 L, Plt Count 439 H Assessment & Plan - Problems (Diagnosis) (1) Pneumonia Current Visit: Yes Status: Acute Plan: Patient is 82 years of age admitted with significant bilateral pneumonia he is not septic other signs are all stable white count is declining repeat chest x- ray ordered he continues to improve will consider trial of steroids doubt that this is tuberculosis his clinical appearance is not compatible with his severity of the chest x-ray patient is mildly anemic he has severe COPD based on the CT scan of 1 I use Atrovent q. 6 Xopenex p.r.n. Qualifiers: Pneumonia type: due to unspecified organism
[2018-07-16] MEDS: ATORVASTATIN 10 MG TAB PO SCH ×2 (09:00→21:57)
[2018-07-16] MEDS: CLOPIDOGREL 75 MG TABLET PO SCH ×2 (09:00)
[2018-07-16] MEDS: CODEINE 30MG/APAP 300MG TAB PO SCH (09:00)
[2018-07-16] MEDS: ASPIRIN 81 MG CHEWABLE TABLET PO SCH ×2 (09:00→13:34)
[2018-07-16] MEDS: predniSONE 20 MG TAB PO SCH ×2 (09:19→21:56)
[2018-07-16] MEDS ORDERED: IPRATROPIUM BROM 0.5MG/2.5ML NEB SCH (14:00)
[2018-07-16] MEDS ORDERED: METFORMIN HCL 500 MG TAB PO SCH (17:00)
[2018-07-16] MEDS: GLIMEPIRIDE 2 MG TABLET PO SCH (17:26)
[2018-07-16 18:14] LABS: Urine Appearance CLEAR; Urine Bilirubin NEGATIVE (NEG); Urine Blood NEGATIVE (NEG); Urine Color YELLOW; Urine Glucose 2+ (NEG); Urine Protein 1+ (NEG); Urine Specific Gravity 1.025 (1.005-1.030); Urine Urobilinogen 0.2 mg/dL (0.2-1.0); Urine pH 5.5 (5.0-7.0)
[2018-07-16 18:27] LABS: Urine Microscopic Reflex ORDER UMIC
[2018-07-16 19:20] LABS: Urine Bacteria <20 /HPF (NONE SEEN); Urine Culture Reflex Order NOT NEEDED; Urine Mucus 1+ /HPF (NONE SEEN)
[2018-07-16] MEDS: LEVALBUTEROL 1.25 MG/3 ML NEB IH PRN (20:04)
[2018-07-16] MEDS: VANCOMYCIN 1.25 GM in NA CHLORIDE 0.9% 250 ML IVPB SCH (21:55)
[2018-07-16] MEDS: MIRTAZAPINE 15 MG TAB PO SCH (21:56)
[2018-07-16] MEDS: PARoxetine HCl 10 MG TAB PO SCH (21:57)
--- NOTE | 2018-07-16 22:33 | PN ---
Date of Progress Note: 07/16/2018 Subjective: The patient is feeling lot better. Denies any chest pain, nausea, or vomiting. Physical Examination: A frail, cachectic gentleman, heavy smoker in the past, COPD patient, comes in with low oxygen, hypox ia, weakness, and was found to have extensive pneumonia which has clinically improved. The very firs t sputum reports came back. There is a cavitary part of the pneumonia also which could be just a tea r, it looks less likely to be tuberculosis in nature. Dr. Zuñiga is on the case. Continue antibio tics, currently on broad-spectrum. Once there is more improvement, we will make it further narrow in the spectrum. Continue current medications. There is no sign of COPD exacerbation at this point. He does have COPD, but current admission is for pneumonia and his prognosis remains overall guarded. He is cachectic, frail. Chances of malignancy are there, but we will have to see how the pneumonia responds to the antibiotics. RVD/MODL Voice ID: [id number] Report ID: [id number]
[2018-07-17] MEDS: Meropenem 1,000 MG in NA CHLORIDE 0.9% 100 ML IV SCH ×3 (00:39→18:45)
[2018-07-17] MEDS: IPRATROPIUM BROM 0.5MG/2.5ML IH SCH ×4 (01:45→19:47)
[2018-07-17 05:41] LABS: Absolute Lymphocytes (CBC) 0.8 K/uL (0.7-4.9); Absolute Monocytes 0.4 K/uL (0.1-1.3); Absolute Neutrophil 11.2 K/uL (1.8-8.0); Basophils % 0.1 % (0-1.3); Eosinophils % 0.2 % (0-4.4); Hematocrit 30.2 % (39.6-49.0); Lymphocytes % 6.7 % (15.3-44.8); MCH 25.2 pg (27.0-35.0); MPV 6.8 fL (7.6-11.3); Monocytes % 3.5 % (3.3-12.3); RBC Red Blood Cell Count 3.88 M/uL (4.33-5.43)
[2018-07-17 06:04] LABS: Magnesium 2.1 mg/dL (1.8-2.4); Potassium 5.5 mmol/L (3.5-5.1)
[2018-07-17] MEDS: INSULIN -REGULAR HUMAN 50 UNIT/0.5 ML ML SQ SCH ×4 (07:30→21:46)
--- NOTE | 2018-07-17 08:08 | P.PN ---
Subjective Date of Service: 07/18/18 Chief Complaint: Pneumonai Subjective: Improving (Doign better. On BIPAP) Review of Systems General: Weakness Respiratory: Shortness of Breath Physical Examination - Vital Signs Temperature: 97.1 F Blood Pressure: 138/71 Pulse: 97 Respirations: 18 Pulse Ox (%): 97 - Physical Exam General: Oriented x3 Respiratory: Clear to auscultation bilaterally Cardiovascular: No edema, Normal S1 S2 - Studies Laboratory Data (last 24 hrs) 07/17/18 04:58: Sodium 138, Potassium 5.5 H, BUN 32 H, Creatinine 0.90, Glucose 233 H, Magnesium 2.1 07/17/18 04:58: WBC 12.5 H, Hgb 9.8 L, Hct 30.2 L, Plt Count 491 H Assessment & Plan - Problems (Diagnosis) (1) Pneumonia Onset Date: 07/16/18 Current Visit: Yes Status: Acute Plan: Bilateral pneumonia. . DDX BOOP. Trial fo steroids. Lovenox for DVT prophylaxis. Trial of BIPAP. LAbs rev. BS elevated. K elevated. cultures neg. CXRy bialt inflam changes. Continue with isolation until sputum cultures are back Qualifiers: Pneumonia type: due to unspecified organism
--- NOTE | 2018-07-17 08:11 | RAD REPORT ---
EXAM DESCRIPTION: [place] Single View07/17/2018 6:30 am CLINICAL HISTORY: Chest pain COMPARISON: 07/14/2018 FINDINGS: There probably has been no significant change in the extensive bilateral pneumonia. The heart is normal size IMPRESSION: No significant change since the prior exam
[2018-07-17 08:26] LABS: Anisocytosis 1+; Blood Morphology Comment NOTED (NOT SEEN); Platelet Estimate INCR
[2018-07-17] MEDS ORDERED: BENAZEPRIL PO SCH (09:00)
[2018-07-17] MEDS ORDERED: AMLODIPINE BESYLATE PO SCH (09:00)
[2018-07-17] MEDS ORDERED: GLIMEPIRIDE 2 MG TABLET PO SCH (09:00)
[2018-07-17] MEDS: CODEINE 30MG/APAP 300MG TAB PO SCH (09:00)
[2018-07-17] MEDS ORDERED: [UNRECOGNIZED DRUG - OTHER] PO SCH (09:00)
[2018-07-17] MEDS ORDERED: BENAZEPRIL 20 MG TAB PO SCH (09:00)
[2018-07-17] MEDS: ENOXAPARIN 40 MG/0.4 ML SQ SCH (09:13)
[2018-07-17] MEDS: CARVEDILOL 6.25 MG TAB PO SCH ×2 (09:13→18:45)
[2018-07-17] MEDS: METFORMIN HCL 500 MG TAB PO SCH ×3 (09:14→22:00)
[2018-07-17] MEDS: CLOPIDOGREL 75 MG TABLET PO SCH (09:14)
[2018-07-17] MEDS: predniSONE 20 MG TAB PO SCH ×2 (09:14→21:48)
[2018-07-17] MEDS: GLIMEPIRIDE 2 MG TABLET PO SCH ×2 (09:14→18:44)
[2018-07-17] MEDS: AMLODIPINE 10 MG TAB PO SCH (09:14)
[2018-07-17] MEDS: ARFORMOTEROL TARTRATE 15 MCG/2 ML VIAL.NEB NEB SCH ×2 (09:50→19:47)
[2018-07-17] MEDS: ASPIRIN 81 MG CHEWABLE TABLET PO SCH (12:50)
[2018-07-17 12:54] LABS: UR MICROALBUMIN 6.2 mg/dL (< 1.9)
[2018-07-17] MEDS ORDERED: D50W 25 GM/50 ML SYRINGE IV PRN (16:33)
[2018-07-17] MEDS ORDERED: GLUCAGON 1 MG/VIAL IM PRN (16:33)
[2018-07-17] MEDS ORDERED: NACHLORIDE 0.45% 1,000 ML IV SCH (18:00)
[2018-07-17] MEDS ORDERED: VANCOMYCIN 1.5 GM in NA CHLORIDE 0.9% 500 ML IVPB SCH (21:00)
[2018-07-17] MEDS: INSULIN GLARGINE 100 UNITS/ML SQ SCH (21:47)
[2018-07-17] MEDS: MIRTAZAPINE 15 MG TAB PO SCH (21:48)
[2018-07-17] MEDS: PARoxetine HCl 10 MG TAB PO SCH (21:48)
[2018-07-17] MEDS: ATORVASTATIN 10 MG TAB PO SCH (21:49)
[2018-07-17] MEDS: ETHAMBUTOL HCL 400 MG TAB PO SCH (22:00)
--- NOTE | 2018-07-17 22:32 | PN ---
Subjective: The patient is feeling lot better. Denies any chest pain, nausea, vomiting. Breathing is improved. Physical Examination: General: The patient is comfortable, still hypoxic on nasal cannula, 100% non-rebreather for oxygena tion 92% on Ventimask. Vital Signs: Temperature 97.4, pulse 103, blood pressure 171/66, respirations 20. HEENT: No JVD. No carotid bruits. Chest: Clear to auscultation bilaterally. No rales, no wheezing. Abdomen: No guarding, no rebound, no rigidity. Neurological: Intact. Laboratory Data: White count 12,500, hemoglobin 9.8, hematocrit 30, platelets of 491. Potassium 5.5 , glucose 233. Microalbumin 114. 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 According to Dr. 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 This will raise his sugar, so I am adding Lantus insulin at t his point subcu daily. Follow up on sugar every day. 2.Hyperkalemia. I will stop benazepril and start gentle IV fluids. This will improve the potassium slightly by tomorrow. May not need Kayexalate. 3.Chronic obstructive pulmonary disease, currently severe chronic obstructive pulmonary disease, not in exacerbation, but his current respiratory condition worsening as the cause of the bronchiolitis obliterans with organizing pneumonia. Prognosis is guarded. Discussed with the patient's . RVD/MODL Voice ID: [id number] Report ID: [id number]
[2018-07-18] MEDS: Meropenem 1,000 MG in NA CHLORIDE 0.9% 100 ML IV SCH ×2 (01:21→09:27)
[2018-07-18] MEDS: IPRATROPIUM BROM 0.5MG/2.5ML IH SCH ×4 (01:33→20:37)
[2018-07-18] MEDS: ARFORMOTEROL TARTRATE 15 MCG/2 ML VIAL.NEB NEB SCH ×2 (08:00→20:36)
[2018-07-18 08:37] LABS: BUN Blood Urea Nitrogen 33 mg/dL (7-18); Bicarbonate 27 mmol/L (21-32); Glucose Level 214 mg/dL (74-106); Potassium 4.9 mmol/L (3.5-5.1); Sodium Level 134 mmol/L (136-145)
[2018-07-18 08:47] LABS: Absolute Lymphocytes (CBC) 1.2 K/uL (0.7-4.9); Absolute Monocytes 0.6 K/uL (0.1-1.3); Absolute Neutrophil 12.6 K/uL (1.8-8.0); Basophils % 0.1 % (0-1.3); Eosinophils % 0.1 % (0-4.4); Hematocrit 33.4 % (39.6-49.0); Lymphocytes % 8.1 % (15.3-44.8); MCH 24.9 pg (27.0-35.0); MCV 77.7 fL (80-100); MPV 6.7 fL (7.6-11.3)
[2018-07-18] MEDS: GLIMEPIRIDE 2 MG TABLET PO SCH ×2 (09:28→17:00)
[2018-07-18] MEDS: ENOXAPARIN 40 MG/0.4 ML SQ SCH (09:28)
[2018-07-18] MEDS: METFORMIN HCL 500 MG TAB PO SCH ×2 (09:29→21:49)
[2018-07-18] MEDS: CODEINE 30MG/APAP 300MG TAB PO SCH (09:30)
[2018-07-18] MEDS: AMLODIPINE 10 MG TAB PO SCH (09:31)
[2018-07-18] MEDS: INSULIN -REGULAR HUMAN 50 UNIT/0.5 ML ML SQ SCH ×4 (09:32→21:00)
[2018-07-18] MEDS: CLOPIDOGREL 75 MG TABLET PO SCH (09:32)
[2018-07-18] MEDS: CARVEDILOL 6.25 MG TAB PO SCH ×2 (09:32→17:35)
--- NOTE | 2018-07-18 10:33 | P.PN ---
Subjective Date of Service: 07/18/18 Chief Complaint: AFB positive Subjective: Improving (Patient is improving although still hypoxic eating and drinking according to the he has not lost any weight recently) Review of Systems Respiratory: Cough, Shortness of Breath Physical Examination - Vital Signs Temperature: 97.1 F Blood Pressure: 138/71 Pulse: 97 Respirations: 18 Pulse Ox (%): 97 - Physical Exam General: Alert, Oriented x3 Neck: Supple Respiratory: Clear to auscultation bilaterally Cardiovascular: No edema, Normal S1 S2 - Studies Laboratory Data (last 24 hrs) 07/18/18 08:13: Sodium 134 L, Potassium 4.9, BUN 33 H, Creatinine 0.80, Glucose 214 H 07/18/18 08:13: WBC 14.4 H D, Hgb 10.7 L, Hct 33.4 L, Plt Count 607 H D Assessment & Plan - Problems (Diagnosis) (1) Acid fast bacillus Current Visit: Yes Status: Acute Plan: Patient's sputum is full +acid-fast bacilli I have started him on antituberculous therapy with 4 drugs will notify the health department clinically is improving all the still requiring significant oxygen patient has severe COPD Dc meropenem and steroids continue with isolation Plan to discharge in: Greater than 2 days
[2018-07-18] MEDS: PYRAZINAMIDE 500 MG TAB PO SCH ×2 (12:38→21:48)
[2018-07-18] MEDS: ISONIAZID 300 MG TAB PO SCH (12:39)
[2018-07-18] MEDS: ASPIRIN 81 MG CHEWABLE TABLET PO SCH (12:41)
[2018-07-18] MEDS: INSULIN GLARGINE 100 UNITS/ML SQ SCH (21:00)
[2018-07-18] MEDS: ATORVASTATIN 10 MG TAB PO SCH (21:50)
[2018-07-18] MEDS: ETHAMBUTOL HCL 400 MG TAB PO SCH (21:50)
[2018-07-18] MEDS: MIRTAZAPINE 15 MG TAB PO SCH (22:02)
--- NOTE | 2018-07-18 23:28 | PN ---
Subjective: Mr. Dominguez is feeling lot better. Denies any chest pain, nausea, vomiting, diarrhea, coughing. He is minimally short of breath at rest. Objective: Vital Signs: Blood pressure 140/79. Pulse ox is 92% percent on 40% FiO2, and pulse rate is 94. General: Weak, cachectic, old gentleman. Chest: Decreased breath sounds bilaterally. Heart: Regular. Abdomen: No guarding, no rebound, no rigidity. Laboratory Data: White count 42958; hemoglobin 10, hematocrit 33, platelets of 627,000. Potassium 4 .9, BUN 36, creatinine 0.8. Culture positive acid-fast bacilli just called in last night to Dr. Rosario morrow. 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 Again, identification will be available in a week or 2 from now. Un til then, Dr. Zuñiga wants to start TB therapy as a precaution. He is on isolation since the beginn ing of the hospital. Explained to family in detail. 2.The patient might have superimposed pneumonia also, which is what brought him to hospital, and he is on meropenem for pneumonia. Clinically he is improved significantly. He continued to be hypoxic, which is why he is still in the hospital. It may take Friday or Friday until his oxygenation improv es to get him home with oral TB therapy under care of [facility]. If he has M ycobacterium avium-intracellulare, the Mycobacterium tuberculosis infection therapy will be discontin ued at this point, but we will not know until further culture identification. Discussed with the patient's and also Dr. Zuñiga. KATHLEEN/MODL Voice ID: [id number] Report ID: [id number]
[2018-07-18] MEDS ORDERED: NA CHLORIDE 0.9% 1,000 ML IV SCH (23:45)
[2018-07-19 00:35] LABS: Absolute Lymphocytes (CBC) 1.8 K/uL (0.7-4.9); Absolute Monocytes 1.1 K/uL (0.1-1.3); Absolute Neutrophil 9.2 K/uL (1.8-8.0); Basophils % 0.5 % (0-1.3); Eosinophils % 5.3 % (0-4.4); Hematocrit 33.1 % (39.6-49.0); MCH 24.5 pg (27.0-35.0); MCV 77.2 fL (80-100); MPV 6.6 fL (7.6-11.3); Monocytes % 8.4 % (3.3-12.3); RBC Red Blood Cell Count 4.28 M/uL (4.33-5.43)
[2018-07-19 00:58] LABS: Albumin 2.4 g/dL (3.4-5.0); Bilirubin Total 0.5 mg/dL (0.2-1.0); Potassium 4.8 mmol/L (3.5-5.1); Protein, Total 6.3 g/dL (6.4-8.2)
[2018-07-19 01:04] LABS: Blood Morphology Comment NOT SEEN (NOT SEEN); Platelet Estimate INCR
[2018-07-19] MEDS: IPRATROPIUM BROM 0.5MG/2.5ML IH SCH ×4 (01:44→19:41)
[2018-07-19] MEDS: INSULIN -REGULAR HUMAN 50 UNIT/0.5 ML ML SQ SCH ×4 (07:30→21:24)
[2018-07-19] MEDS: GLIMEPIRIDE 2 MG TABLET PO SCH ×2 (08:00→18:09)
--- NOTE | 2018-07-19 08:08 | RAD REPORT ---
EXAM DESCRIPTION: RAD - Chest Single View - 07/18/2018 6:34 am CLINICAL HISTORY: Pneumonia The final report was delayed due to PACs and/or Fluency technical problems that existed at the time of the study or during expected/usual dictation time period. It is unknown if a verbal report was pro vided prior to this dictation. COMPARISON: July 17 chest film, July 14 CT chest TECHNIQUE: AP portable chest image was obtained 0600 hours . FINDINGS: Dense parenchymal opacification is present in the lateral mid left lung field. Extensive p arenchymal opacification in the right upper lung field. Cavitary component is seen in the right upper lobe finding. Less extensive right lower lung field opacification is present. Overall lung findings are not substantially different from prior day study. Heart and vasculature are normal. No enlarging pleural effusion. No pneumothorax. No gross bony abno rmality seen. No acute aortic findings suspected. IMPRESSION: Extensive parenchymal opacification scattered throughout the lung [place]. Pattern is not substantially different from prior day.
[2018-07-19] MEDS: ARFORMOTEROL TARTRATE 15 MCG/2 ML VIAL.NEB NEB SCH ×2 (08:17→19:41)
[2018-07-19] MEDS: METFORMIN HCL 500 MG TAB PO SCH ×2 (09:00→21:25)
[2018-07-19] MEDS: ISONIAZID 300 MG TAB PO SCH (09:00)
[2018-07-19] MEDS: AMLODIPINE 10 MG TAB PO SCH (09:29)
[2018-07-19] MEDS: PYRAZINAMIDE 500 MG TAB PO SCH ×2 (09:29→21:25)
[2018-07-19] MEDS: CODEINE 30MG/APAP 300MG TAB PO SCH (09:30)
[2018-07-19] MEDS: CLOPIDOGREL 75 MG TABLET PO SCH (09:30)
[2018-07-19] MEDS: CARVEDILOL 6.25 MG TAB PO SCH ×2 (09:30→18:09)
[2018-07-19] MEDS: ENOXAPARIN 40 MG/0.4 ML SQ SCH (09:31)
[2018-07-19] MEDS: ASPIRIN 81 MG CHEWABLE TABLET PO SCH (11:33)
--- NOTE | 2018-07-19 11:43 | RAD REPORT ---
EXAM DESCRIPTION: RAD - Chest Single View - 07/19/2018 6:09 am CLINICAL HISTORY: pneumonia Chest pain. COMPARISON: Chest Single View dated 07/18/2018; Chest Single View dated 07/17/2018; CHEST SINGLE VIEW dated 12/31/2014; CHEST SINGLE VIEW dated 10/25/2011; Chest Angio dated 07/14/2018 FINDINGS: Portable technique limits examination quality. No significant change is seen in the extensive areas of airspace opacification bilaterally with under lying emphysematous changes present. The heart is mildly enlarged in size. No displaced fractures.Aor tic atherosclerosis. IMPRESSION: Stable chest since 07/18/2018.
[2018-07-19] MEDS: INSULIN GLARGINE 100 UNITS/ML SQ SCH (21:23)
[2018-07-19] MEDS: ATORVASTATIN 10 MG TAB PO SCH (21:24)
[2018-07-19] MEDS: MIRTAZAPINE 15 MG TAB PO SCH (21:25)
[2018-07-19] MEDS: ETHAMBUTOL HCL 400 MG TAB PO SCH (21:25)
--- NOTE | 2018-07-19 23:08 | PN ---
Subjective: The patient is feeling lot a better. Objective: VITAL SIGNS: He is on high dose of oxygen 8 to 9 L nasal cannula through Ventimask, oxygen saturating 90% down to 88%. Blood pressure 125/79, and pulse 92. HEENT: No JVD. No carotid bruit. CHEST: Decreased breath sounds bilaterally. HEART: Regular. ABDOMEN: No guarding, no rebound, no rigidity. Investigations: Hemoglobin 10; hematocrit 30; WBC 12,800 after being off steroids now; and platelets were 540,000. Lactic acid down from 2.9 to 1.4. Assessment And Plan: 1. Possible mycobacterium avium intracellulare infection clinically. He never had symptoms about chronic respiratory tract infection, except for being weak. He was not able to walk and was hypoxic. He never had low-grade temperature at night. Never had coughing with hemoptysis. Recently weight loss happened since the surgery for bladder cancer, which was the cystoscopic surgery. So the symptoms are in favor of Mycobacterium avium-intracellulare infection and not Mycobacterium tuberculosis. I explained to the family about this, but again we would not know more identification available. He is not able to go home yet as hypoxia remains a major problem, we cannot maintain Ventimask oxygenation at home, which is why he is still here. He may qualify for LTAC, but currently, he needs to be in isolation until we know more about further identification of tuberculosis versus Mycobacterium avium- intracellulare infection. 2. His diabetes is better controlled with insulin at this point. He may not need insulin at home. 3. Chronic obstructive pulmonary disease. It is a chronic disease for him. He has severe chronic obstructive pulmonary disease, but no signs of exacerbation. On chest examination, he has stable chest since beginning showing extensive areas of airspace opacification bilaterally and underlying emphysematous changes. Prognosis is guarded. Discussed with the patient today. is not at bedside to today. RVD/MODL Voice ID: [id number] Report ID: [id number] THOM
[2018-07-20] MEDS: LEVALBUTEROL 1.25 MG/3 ML NEB IH PRN (03:33)
[2018-07-20] MEDS: IPRATROPIUM BROM 0.5MG/2.5ML IH SCH ×4 (03:34→20:28)
[2018-07-20] MEDS: INSULIN -REGULAR HUMAN 50 UNIT/0.5 ML ML SQ SCH ×4 (07:30→21:00)
--- NOTE | 2018-07-20 07:35 | RAD REPORT ---
EXAM DESCRIPTION: RAD - Chest Single View - 07/20/2018 6:44 am CLINICAL HISTORY: Pneumonia COMPARISON: July 19 TECHNIQUE: AP portable chest image was obtained 0626 hours . FINDINGS: Extensive bilateral lung opacification is still present. Cavitary component in the right u pper lobe also seen as stable. No progressive chest finding seen. Heart size is normal and stable. No pneumothorax or enlarging pleural effusion. IMPRESSION: Extensive bilateral lung parenchymal opacification stable from prior day.
[2018-07-20] MEDS: GLIMEPIRIDE 2 MG TABLET PO SCH ×2 (08:00→17:00)
[2018-07-20] MEDS: METFORMIN HCL 500 MG TAB PO SCH (08:48)
[2018-07-20] MEDS: HOME MED 1 EA UNK (Umeclidinium Brm/Vilanterol Tr [Anoro Ellipta 62.5-25 Mcg Inh] 1 PUFF) PO SCH (09:00)
[2018-07-20] MEDS: ARFORMOTEROL TARTRATE 15 MCG/2 ML VIAL.NEB NEB SCH ×2 (09:03→20:29)
[2018-07-20] MEDS: ENOXAPARIN 40 MG/0.4 ML SQ SCH (09:43)
[2018-07-20] MEDS: CLOPIDOGREL 75 MG TABLET PO SCH (09:44)
[2018-07-20] MEDS: CODEINE 30MG/APAP 300MG TAB PO SCH (09:44)
[2018-07-20] MEDS: CARVEDILOL 6.25 MG TAB PO SCH ×2 (09:44→17:51)
[2018-07-20] MEDS: AMLODIPINE 10 MG TAB PO SCH (09:44)
[2018-07-20] MEDS: ISONIAZID 300 MG TAB PO SCH (09:45)
[2018-07-20] MEDS: PYRAZINAMIDE 500 MG TAB PO SCH ×2 (09:46→21:00)
--- NOTE | 2018-07-20 12:05 | P.PN ---
Subjective Date of Service: 07/20/18 Chief Complaint: AFB positive Subjective: Improving (Patient is much better no new complaints his oxygen level drops on speaking eating well) Review of Systems General: Weakness Physical Examination - Vital Signs Temperature: 97.7 F Blood Pressure: 152/78 Pulse: 93 Respirations: 18 Pulse Ox (%): 95 - Physical Exam General: Alert, Oriented x3 Respiratory: Clear to auscultation bilaterally, Diminished Cardiovascular: No edema, Regular rate/rhythm - Studies Microbiology Data (last 24 hrs): 07/19/18 00:19 Blood - Blood Anaerobic Blood Culture - Final 07/14/18 17:01 Blood - Blood Aerobic Blood Culture - Final No growth in 5 days. 07/14/18 17:01 Blood - Blood Anaerobic Blood Culture - Final No growth in 5 days. 07/17/18 12:15 Sputum Gram Stain - Final 07/17/18 12:15 Sputum Culture & Sensitivity - Final 07/17/18 12:15 Clean Catch Urine [place] Count - Final 07/17/18 12:15 Clean Catch Urine - Final Assessment & Plan - Problems (Diagnosis) (1) Acid fast bacillus Current Visit: Yes Status: Acute Plan: Patient to continue with quadruple therapy he can be discharged home on oxygen bruise or a [facility] contacted he is to take for antituberculous drugs at home to remain in isolation at home blood pressure is mildly elevated patient has a bronchodilator at home Discharge Plan: Home Plan to discharge in: 48 Hours
[2018-07-20] MEDS: ASPIRIN 81 MG CHEWABLE TABLET PO SCH (12:11)
[2018-07-20] MEDS: ATORVASTATIN 10 MG TAB PO SCH (21:00)
[2018-07-20] MEDS: MIRTAZAPINE 15 MG TAB PO SCH (21:00)
--- NOTE | 2018-07-20 22:24 | PN ---
Subjective: He is doing a lot better. He is able to eat properly without oxygen support. He stays about 88% to 90% on 2 L nasal cannula. He is getting stronger. Objective: Chest: Clear. Heart: Regular. Abdomen: No guarding, no rebound, no rigidity. Vital Signs: Blood pressure 135/69, pulse is 88, temperature 98.5 Laboratory Data: The patient's white count is 12,800, hemoglobin 10, hematocrit 33, platelets of 549 ,000. Chem-7 shows sodium 135, potassium 4.8, chloride 101, bicarb 29, creatinine 0.9. 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 Dr. Zuñiga working on with the [facility] [employer]. Ruling out MTB will depend on 2 more weeks of culture. Until then, he will be at home. We will continue oral medications started by Dr. Zuñiga. 2.Superadded lung infection. Needs Augmentin for few days after stopping meropenem. 3.Diabetes. Now the sugar has improved being off prednisone, so the patient will be discharged on n o changes in medications in that situation. Prognosis remains guarded. RVD/MODL Voice ID: [id number] Report ID: [id number]
[2018-07-21] MEDS: IPRATROPIUM BROM 0.5MG/2.5ML IH SCH ×4 (01:55→20:59)
[2018-07-21] MEDS: INSULIN -REGULAR HUMAN 50 UNIT/0.5 ML ML SQ SCH ×4 (07:30→21:00)
[2018-07-21] MEDS ORDERED: INFLUENZA VACCINE (for 3y+) 0.5 ML DOSE IMVAC ONE (08:00)
[2018-07-21] MEDS: ARFORMOTEROL TARTRATE 15 MCG/2 ML VIAL.NEB NEB SCH ×2 (08:13→20:59)
[2018-07-21] MEDS: ISONIAZID 300 MG TAB PO SCH (09:00)
[2018-07-21] MEDS: CODEINE 30MG/APAP 300MG TAB PO SCH ×2 (09:00→11:59)
[2018-07-21] MEDS: HOME MED 1 EA UNK (Umeclidinium Brm/Vilanterol Tr [Anoro Ellipta 62.5-25 Mcg Inh] 1 PUFF) PO SCH (09:00)
[2018-07-21] MEDS: ENOXAPARIN 40 MG/0.4 ML SQ SCH (10:11)
[2018-07-21] MEDS: CARVEDILOL 6.25 MG TAB PO SCH ×2 (10:14→18:20)
[2018-07-21] MEDS: GLIMEPIRIDE 2 MG TABLET PO SCH ×2 (10:14→18:20)
[2018-07-21] MEDS: CLOPIDOGREL 75 MG TABLET PO SCH (10:15)
[2018-07-21] MEDS: AMLODIPINE 10 MG TAB PO SCH (10:15)
[2018-07-21] MEDS: METFORMIN HCL 500 MG TAB PO SCH ×2 (10:15→20:25)
[2018-07-21] MEDS: PYRAZINAMIDE 500 MG TAB PO SCH ×2 (10:16→20:25)
[2018-07-21] MEDS: ASPIRIN 81 MG CHEWABLE TABLET PO SCH (11:59)
--- NOTE | 2018-07-21 18:01 | PN ---
Subjective: He is feeling lot better. He is sitting on the side, able to eat properly. Denies any chest pain, nausea, vomiting, and not able to walk yet. I have asked charge nurse why therapy has no t been done yet, but I was told by a charge nurse, Adela, that administration does not want a therapi st in the room to expose more people tuberculosis if he does really have tuberculosis. In generally, he is weak and I am afraid, he will fall at home and create a bigger problem, so I have asked the di dao of nurses to call me about physical therapy, even just a trial to make sure he is safe at home . Physical Examination: Vital Signs: Blood pressure 145/71, pulse is 97, temperature 97, O2 saturation 91% on 4 L nasal kenneth elodia. Chest: Decreased breath sounds bilaterally. General: He is a cachectic older gentleman. COPD related cachexia. Abdomen: No guarding, no rebound, no rigidity. Laboratory Examination: Glucose has been anywhere from 104 to 272. Assessment And Plan: 1.Respiratory infection, possible mycobacterium avium-intracellulare versus mycobacterium tuberculos is, clinically more mycobacterium avium-intracellulare likelihood, but will be treated as the mycobac terium tuberculosis until cleared by further investigation, which will take place. Results will take place in 2 weeks from now. 2.Diabetes. Continues to be stable. Continue current medications, glimepiride and metformin. 3.Chronic obstructive pulmonary disease, stable and his condition, he has severe chronic obstructive pulmonary disease. We are waiting for social media marketer to get medication approved by the [facility] and we are also waiting for therapist before I can discharge him safely. KATHLEEN/SCOUT Voice ID: [id number] Report ID: [id number]
[2018-07-21] MEDS: ATORVASTATIN 10 MG TAB PO SCH (20:25)
[2018-07-21] MEDS: ETHAMBUTOL HCL 400 MG TAB PO SCH (20:25)
[2018-07-21] MEDS: MIRTAZAPINE 15 MG TAB PO SCH (20:25)
[2018-07-22] MEDS: IPRATROPIUM BROM 0.5MG/2.5ML IH SCH ×3 (02:17→13:36)
[2018-07-22] MEDS: INSULIN -REGULAR HUMAN 50 UNIT/0.5 ML ML SQ SCH ×3 (07:30→16:30)
[2018-07-22 07:44] LABS: BUN Blood Urea Nitrogen 28 mg/dL (7-18); Bicarbonate 26 mmol/L (21-32); Glucose Level 129 mg/dL (74-106); Potassium 4.6 mmol/L (3.5-5.1); Sodium Level 133 mmol/L (136-145)
[2018-07-22 07:50] LABS: Absolute Lymphocytes (CBC) 1.5 K/uL (0.7-4.9); Absolute Monocytes 0.8 K/uL (0.1-1.3); Absolute Neutrophil 6.2 K/uL (1.8-8.0); Basophils % 1.2 % (0-1.3); Eosinophils % 12.3 % (0-4.4); Hematocrit 32.2 % (39.6-49.0); Lymphocytes % 15.7 % (15.3-44.8); MCH 25.9 pg (27.0-35.0); MCV 77.1 fL (80-100); MPV 6.6 fL (7.6-11.3); Monocytes % 7.8 % (3.3-12.3); RBC Red Blood Cell Count 4.18 M/uL (4.33-5.43)
[2018-07-22] MEDS: ENOXAPARIN 40 MG/0.4 ML SQ SCH (08:56)
[2018-07-22] MEDS: GLIMEPIRIDE 2 MG TABLET PO SCH ×2 (08:57→17:31)
[2018-07-22] MEDS: AMLODIPINE 10 MG TAB PO SCH (08:57)
[2018-07-22] MEDS: METFORMIN HCL 500 MG TAB PO SCH (08:57)
[2018-07-22] MEDS: CLOPIDOGREL 75 MG TABLET PO SCH (08:58)
[2018-07-22] MEDS: CARVEDILOL 6.25 MG TAB PO SCH ×2 (08:58→17:31)
[2018-07-22] MEDS: PYRAZINAMIDE 500 MG TAB PO SCH (08:59)
[2018-07-22] MEDS: ISONIAZID 300 MG TAB PO SCH (09:00)
[2018-07-22] MEDS: HOME MED 1 EA UNK (Umeclidinium Brm/Vilanterol Tr [Anoro Ellipta 62.5-25 Mcg Inh] 1 PUFF) PO SCH (09:00)
[2018-07-22] MEDS: CODEINE 30MG/APAP 300MG TAB PO SCH (09:01)
[2018-07-22] MEDS: ARFORMOTEROL TARTRATE 15 MCG/2 ML VIAL.NEB NEB SCH (10:11)
[2018-07-22] MEDS: ASPIRIN 81 MG CHEWABLE TABLET PO SCH (11:16)
[2018-07-22 12:51] VITALS: O2SAT 91
[2018-07-22 16:59] VITALS: BP 137/71; TEMP 97.8
[2018-07-22] MEDS: ETHAMBUTOL HCL 400 MG TAB PO SCH (17:31)
--- NOTE | 2018-07-23 03:15 | DS ---
Date of Discharge: 07/22/2018 Final Diagnoses: 1.Mycobacterium growth from the sputum, unclear whether it is mycobacterium avium-intracellulare or mycobacterium tuberculosis so far. 2.Severe chronic obstructive pulmonary disease. Secondary Diagnoses: Diabetes, high blood pressure, backache, and anxiety. Hospital Course: The patient is an 82-year-old gentleman who comes in with severe shortness of breat h to my office, generally being weak. A shortness of breath was not visible except for his hypoxia w as at 88% on room air. When he came to hospital, that day it was 70% on room air. Clinically improv ed on IV antibiotics, but at the same time sputum grew acid-fast bacilli, identification of which is still pending. Presuming that it is most likely going to be RCYSTAL, but we cannot clear MTB, which is w hy he will be on oral anti-TB medications until cleared further by culture identification. Dr. Araceli crystal on the case. He has prescribed Pyrazinamide and rifampin for possible tuberculosis. I have a fe eling most likely it is not going to be MTB, most likely it is going to be CRYSTAL, because his clinical features were suggestive of CRYSTAL and not MTB. Prognosis overall is fair. The patient's discharge med ications from home will remain unchanged for his diabetes, high blood pressure, anxiety, and back flor n, but the new medications for tuberculosis or MTB are written by Dr. Zuñiga. His current home medications are amlodipine 10 mg once a day, Atorvastatin 10 mg once a day, carvedil ol 6.25 mg p.o. b.i.d., Plavix 75 mg once a day, mirtazapine 50 mg q.h.s., metformin 500 mg p.o. b.i. d., glimepiride 4 mg p.o. b.i.d., benazepril 20 mg once a day which is part of combination with Lotre l, and Actonel 150 mg once a month for Paget's disease he has. His prognosis overall is guarded. RVD/MODL Voice ID: [id number] Report ID: [id number]
== END 2018-07-22 18:06 | disposition home or self-care (01) | DRG 867 ==
LOC: 4TH 10:25 → OBSVTOIN 07-15 11:35
PROVIDERS: ADMIT Internal Medicine; ATTEND Internal Medicine
PROC: 5A09357 Assistance with Respiratory Ventilation, Less than 24 Consecutive Hours, Continuous Positive Airway Pressure (ICD-10-PCS; principal; 2018-07-15)
DX: A31.8 Other mycobacterial infections (principal); J96.90 Respiratory failure, unspecified, unspecified whether with hypoxia or hypercapnia; E87.5 Hyperkalemia; E11.9 Type 2 diabetes mellitus without complications; E78.00 Pure hypercholesterolemia, unspecified; I10 Essential (primary) hypertension; J44.9 Chronic obstructive pulmonary disease, unspecified; J84.89 Other specified interstitial pulmonary diseases; F17.200 Nicotine dependence, unspecified, uncomplicated; Z86.73 Personal history of transient ischemic attack (TIA), and cerebral infarction without residual deficits
CPT/HCPCS: 36415; 71045; 71275; 80048; 80053; 80076; 80202; 81003; 81015; 82043; 82306; 82570; 82607; 82962; 83036; 83605; 83735; 84100; 84443; 85025; 85610; 85730; 86480; 86850; 86900; 86901; 87015; 87040; 87070; 87086; 87088; 87116; 87205; 87206; 94640; 94660; 94760; 97163; G0378; G0379; J1650; J1940; J3475; J7030; J7512; J7605; Q9967